=== PATIENT | female | born 2000 | race Hispanic/Latino ===

== ENCOUNTER 2019-08-22 05:55 | Outpatient (CLI) | payer OTHER ==
[2019-08-22 11:38] LABS: #Eosinphils 0.2 thou/uL (0.0-0.7); #Lymphocytes 2.4 thou/uL (1.20-3.40); #Monocytes 0.7 thou/uL (0.11-0.59); %Basophils 0.5 % (0.0-1.0); %Eosinophils 2.2 % (0.0-10.0); %Lymphocytes 25.9 % (28.0-48.0); %Monocytes 7.6 % (0.0-4.0); %Neutrophils 63.8 % (31.0-61.0); Mean Corpuscular HGB CONC 34.1 g/dL (32.0-36.0); Mean Corpuscular Hemoglobin 28.9 pg (25.0-35.0); Mean Corpuscular Volume 84.7 fL (78.0-98.0); Mean Platelet Volume 7.5 fL (7.4-10.4); Platelet Count 330 thou/uL (130-400); RBC Distribution Width 12.4 % (11.5-14.5); Red Blood Cell (RBC) Count 4.85 mill/uL (4.00-5.20); White Blood Cell (WBC) Count 9.4 thou/uL (4.8-10.8)
[2019-08-22 11:58] LABS: Anion Gap 15 mmol/L (10-20); BUN (Urea Nitrogen) 12 mg/dL (7.0-18.7); Calc. Creatinine Clearance 0 mL/min (70-130); Calcium 9.2 mg/dL (7.8-10.44); Carbon Dioxide 22 mmol/L (22-29); Chloride 105 mmol/L (98-107); Estimated GFR-MDRD Greater than 90; Glucose 76 mg/dL (70-105); Potassium 4.4 mmol/L (3.5-5.1); Sodium 138 mmol/L (136-145)
[2019-08-22 12:15] LABS: BHCG - Serum Negative (NEGATIVE); Pregs Control Background? CLEAR/WHITE (CLR/WHITE); Pregs Control Bar Appear? YES (CONTROL BAR)
[2019-08-23 13:50] LABS: SARS-CoV-2 MS2 Positive; SARS-CoV-2 N Gene Negative; SARS-CoV-2 S Gene Negative; SARS-CoV-2 orf1ab Negative
== END 2019-08-22 05:56 | disposition home or self-care (01) ==
LOC: LABBT 05:55
PROVIDERS: ATTEND Surgery
DX: Z01.812 Encounter for preprocedural laboratory examination (principal); Z11.59 Encounter for screening for other viral diseases; L05.91 Pilonidal cyst without abscess
CPT/HCPCS: 80048; 84703; 85025; 87635; U0003

== ENCOUNTER 2019-08-25 06:08 | Day surgery (SDC) | payer OTHER ==
[2019-08-21 10:36] VITALS: BMI 28.6
[2019-08-25] MEDS ORDERED: Ketorolac Tromethamine 30 MG/ML VIAL ONE ×2 (06:32→10:54)
[2019-08-25] MEDS ORDERED: Acetaminophen 500 MG TAB ONE (06:32)
[2019-08-25] MEDS ORDERED: Bupivacaine 0.25% HCL 30 ML VIAL ONE (06:52)
[2019-08-25] MEDS ORDERED: Bacitracin Zinc Ointment 30 gm TUBE ONE (06:52)
[2019-08-25] MEDS ORDERED: Lidocaine 1% w/Epinephrine 1:100K 20 ML VIAL ONE (06:52)
[2019-08-25] MEDS ORDERED: Methylene Blue 50 MG/10 ML AMPUL ONE (06:57)
[2019-08-25] MEDS ORDERED: Fentanyl 100 MCG/2 ML VIAL ONE (07:47)
[2019-08-25] MEDS ORDERED: Metoclopramide HCl 10 MG/2 ML VIAL ONE (10:54)
[2019-08-25] MEDS ORDERED: Rocuronium Bromide 10 MG/ML (10ML VIAL) ONE (10:54)
[2019-08-25] MEDS ORDERED: Dexamethasone 20 MG/5 ML VIAL ONE (10:54)
[2019-08-25] MEDS ORDERED: Lidocaine 1% PF 5 ML VIAL ONE (10:54)
[2019-08-25] MEDS ORDERED: PROPOFOL 200 MG/20 ML VIAL ONE (10:54)
[2019-08-25] MEDS ORDERED: Glycopyrrolate 0.2 MG/ML 5 ML SYRINGE ONE (10:54)
[2019-08-25] MEDS ORDERED: Ondansetron PF 4 MG/2 ML Vial ONE (10:54)
--- NOTE | 2019-08-25 13:45 | PDOC.OP ---
Operative Note - Operative Note Operative Note: PROCEDURE: Excision of pilonidal cyst. SURGEON: Jennie Mane M.D. DATE OF PROCEDURE: 08/25/2019 PREOPERATIVE DIAGNOSIS: Pilonidal cyst POSTOPERATIVE DIAGNOSIS: Pilonidal cyst HISTORY: Patient with symptomatic pilonidal cyst for which excision was recommended. Currently without any infectious symptoms. DESCRIPTION OF PROCEDURE: After informed consent was obtained and appropriate preoperative antibiotics administered, the patient was taken to the operating room and placed in supine position and general anesthesia was administered. The patient was then placed in the prone jackknife position and prepped and draped in a standard sterile fashion with appropriate padding and support of the extremities. Methylene blue was infused through the pilonidal sinus using an Angiocath and an elliptical incision made incorporating the sinus and the underlying cyst. Dissection was carried down around the cyst, excising it completely to the level of the presacral fascia. Subcutaneous and deep flaps were raised and the wound was closed in two layers in an offset manner using absorbable [id number] 3-0 Vicryl sutures to the subcutaneous flap and 3-0 Vicryl sutures to the deep dermis. The skin was then closed with nylon sutures and bacitracin and nonadherent gauze and Tegaderm dressings were placed. The patient was moved back to the supine position, extubated and taken to the recovery room in good condition. ESTIMATED BLOOD LOSS: Minimal. COMPLICATIONS: There were no complications. SPECIMEN: Pilonidal cyst.
== END 2019-08-25 12:04 | disposition home or self-care (01) ==
LOC: SDC 06:08
PROVIDERS: ATTEND Surgery
PROC: 0HB8XZZ Excision of Buttock Skin, External Approach (ICD-10-PCS; principal; 2019-08-25)
DX: L05.01 Pilonidal cyst with abscess (principal)
CPT/HCPCS: 88304; J0690; J1100; J1885; J2001; J2405; J2704; J2765; J3010; Q9968; S0020